=== PATIENT | female | born 1935 | race Caucasian/White ===

== ENCOUNTER 2017-03-26 12:07 | Emergency (ER) | payer MEDICARE, BC ==
[2017-03-26 15:49] LABS: BASOPHILS 0.2 %; BASOPHILS ABSOLUTE 0.01 10/3/uL (0.0-0.16); EOSINOPHILS 0.2 %; EOSINOPHILS ABSOLUTE 0.01 10/3/uL (0.0-0.53); HEMATOCRIT 39.8 % (36.0-48.0); HEMOGLOBIN 13.7 g/dL (12.0-16.0); IMMATURE GRANULOCYTES 0.2 %; IMMATURE GRANULOCYTES ABSOLUTE 0.01 10/3/uL (0.0-0.11); LYMPHOCYTES 7.4 %; LYMPHOCYTES ABSOLUTE 0.41 10/3/uL (0.67-4.30); MEAN CORPUS HGB CONC 34.4 g/dL (32.0-36.0); MEAN CORPUSCULAR HEMOGLOB 31.1 pg (26.0-34.0); MEAN CORPUSCULAR VOLUME 90.5 fL (80-100); MEAN PLATELET VOLUME 9.1 fL (9.2-13.0); MONOCYTES 4.5 %; MONOCYTES ABSOLUTE 0.25 10/3/uL (0.21-1.20); NEUTROPHILS 87.5 %; NEUTROPHILS ABSOLUTE 4.88 10/3/uL (2.02-8.40); PLATELET COUNT 142 10/3/uL (150-400); RBC DISTRIBUTION WIDTH 14.6 % (12.0-16.0)
[2017-03-26 15:50] LABS: ER CBC TAT 0 Hrs 08 Mins; MANUAL DIFF NO %; WHITE BLOOD CELLS 5.6 10/3/uL (4.5-10.5)
[2017-03-26 16:06] LABS: ALKALINE PHOSPHATASE 95 U/L (45-117); BUN (BLOOD UREA NITROGEN) 23 MG/DL (6-23); CALCIUM, SERUM 9.5 MG/DL (8.5-10.4); CHLORIDE, SERUM 101 MMOL/L (96-112); CO2 (CARBON DIOXIDE) 29 MMOL/L (24-34); CREATININE 0.97 MG/DL (0.55-1.02); GFR AFRICAN AMERICAN 62 ML/MIN (>=60); GFR NON AFRICAN AMERICAN 54 ML/MIN (>=60); GLOBULIN 3.9 G/DL (2.5-4.1); POTASSIUM, SERUM 3.7 MMOL/L (3.5-5.3); SGOT(AST) 39 U/L (5-40); SGPT(ALT) 39 U/L (5-65); SODIUM, SERUM 136 MMOL/L (135-148); TOTAL BILIRUBIN 0.9 MG/DL (0-1.2); TOTAL PROTEIN 7.9 G/DL (6.0-8.5)
[2017-03-26 16:08] LABS: GLUCOSE, SERUM 124 MG/DL (60-99)
[2017-07-30] MEDS ORDERED: LOTE20 PO (11:17)
[2017-07-30] MEDS ORDERED: FLECAINIDE50 MG PO (11:18)
[2017-07-30] MEDS ORDERED: JANTOVEN3 MG PO (12:03)
[2017-07-30] MEDS ORDERED: ZOCOR20 PO (12:04)
[2017-07-30] MEDS ORDERED: NORV5 PO (12:05)
[2017-07-30] MEDS ORDERED: SYN075 PO (12:06)
[2017-07-30] MEDS ORDERED: METHENAM HIP1 GM PO (12:08)
[2017-07-30] MEDS ORDERED: ALIGN4 MG PO (12:09)
[2017-08-01] MEDS ORDERED: AUG875 PO (17:32)
== END 2017-03-26 18:37 | disposition home or self-care (01) ==
LOC: ER 12:07
PROVIDERS: Nurse Practitioner
DX: M54.16 Radiculopathy, lumbar region (principal); I10 Essential (primary) hypertension; I48.91 Unspecified atrial fibrillation; Z88.8 Allergy status to other drugs, medicaments and biological substances
CPT/HCPCS: 72131; 72170; 73502-LT; 80053; 85025; 96374; 96375; 96376; 99284; J2405